=== PATIENT | male | born 1985 | race Asian ===

== ENCOUNTER 2018-11-04 19:23 | Emergency (ER) | payer OTHER, MEDICAID ==
[~2018-11-04] VITALS: Ht 154.9 cm; Wt 57.3 kg
[2018-11-04 19:36] VITALS: BP 129/85
--- NOTE | 2018-11-04 19:38 | NUR ---
PT AMBULATED TO ED ROOM 7.
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
--- NOTE | 2018-11-04 21:29 | NUR ---
PA WITH PT
--- NOTE | 2018-11-04 21:35 | NUR ---
PT WISHING TO BE DISCHARGED, WITHOUT XRAY. PA AWARE.
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
[2018-11-04 21:41] VITALS: BP 129/85
== END 2018-11-04 21:38 | disposition left against medical advice (07) ==
LOC: MED 19:23
DX: R51 Headache (principal); R68.84 Jaw pain
CPT/HCPCS: 99283